=== PATIENT | male | born 1960 | race Two or more races ===

== ENCOUNTER 2018-04-16 01:18 | Emergency (ER) | payer OTHER ==
[~2018-04-16] VITALS: Ht 177.8 cm; Wt 102.5 kg
[~2018-04-16 01:18] MED LIST: KLONOPIN0.125 MG/T; LITHIUM CARBON150 MG; LYRICA50 MG; NEURONTIN250 MG/5 M; XANAX XR1 MG
[2018-04-16] MEDS ORDERED: WELLBUTRIN SR200 MG (01:41)
[2018-04-16] MEDS ORDERED: RESTORIL30 M1 (01:42)
[2018-04-16] MEDS ORDERED: ARIPIPRAZOLE OD15 MG (01:42)
[2018-04-16] MEDS ORDERED: ABILIFY20 MG (01:42)
[2018-04-16] MEDS ORDERED: OMEPRAZOLE20 M1 (01:43)
== END 2018-04-16 11:17 | disposition designated cancer center or children's hospital (05) ==
LOC: ER 01:18
DX: F41.8 Other specified anxiety disorders (principal); M54.5 Low back pain